=== PATIENT | female | born 2000 | race Caucasian/White ===

== ENCOUNTER 2021-08-15 22:57 | Emergency (ER) | payer OTHER ==
[2021-08-15 23:37] LABS: BILIRUBIN,URINE NEGATIVE (NEGATIVE); GLUCOSE, URINE (UA) NEGATIVE (NEGATIVE); KETONES,URINE (UA) NEGATIVE (NEGATIVE); LEUKOCYTE ESTERASE, URINE NEGATIVE (NEGATIVE); NITRITE,URINE NEGATIVE (NEGATIVE); OCCULT BLOOD,URINE NEGATIVE (NEGATIVE); PROTEIN,URINE NEGATIVE (NEGATIVE); UROBILINOGEN,URINE 0.2 (NORMAL) E.U./dL (NORMAL)
[2021-08-15 23:39] LABS: CLARITY,URINE CLEAR (CLEAR)
[2021-08-15 23:41] LABS: HCG UR QUAL NEGATIVE
[2021-08-15] MEDS ORDERED: predniSONE 20 MG TABLET PO STA (23:58)
--- NOTE | 2021-08-16 00:06 | ED Physician Documentation ---
History of Present Illness - Stated complaint Stated Complaint: FLANK PX - Chief complaint Chief Complaint: Abd Pain - History obtained from History obtained from: Patient - Additonal information Additional information: Patient is a 21-year-old female with no significant past medical history presenting for evaluation of bilateral flank pain and rash. She reports the flank pain started yesterday and feels like a dull ache. She is unsure of anything that makes it better but it does seem to be constant.She does report doing a lot of activity with bending and lifting. She denies dysuria (contrary to triage note). She denies concern for STD, denies vaginal discharge or concern for .She also reports noticing a rash starting earlier today and feeling itchy to the back of her neck And upper back. She does have a history of eczema but reports this feels different. She did try her steroid cream that she uses for eczema without any improvement. She also tried Benadryl for the itching without improvement. She is unaware of any new exposures. She denies any new medications.She denies respiratory symptoms. She denies abdominal pain, nausea, vomiting, chest pain. Review of Systems Constitutional: denies: Fever Nose: denies: Congestion Cardiac: denies: Chest pain / pressure Respiratory: denies: Dyspnea, Cough GI: denies: Abdominal Pain, Nausea, Vomiting : denies: Dysuria, Discharge Skin: reports: Rash Musculoskeletal: reports: Back pain (Bilateral flank pain) Neurologic: denies: Headache PD PAST MEDICAL HISTORY - Past Medical History Past Medical History: Yes GI: GERD Derm: Eczema Other Past Medical History: chronic UTI's - Past Surgical History Past Surgical History: No - Present Medications Home Medications: Ambulatory Orders Medication Instructions Recorded Confirmed Lamotrigine [Lamictal (Blue)] 25 mg PO DAILY 08/15/21 08/15/21 predniSONE [Deltasone] 40 mg PO DAILY 4 Days #8 tablet 08/16/21 - Allergies Allergies/Adverse Reactions: Allergies Allergy/AdvReac Type Severity Reaction Status Date / Time latex Allergy Rash Verified 08/15/21 23:05 peanut Allergy Anaphylaxis Verified 08/15/21 23:05 Penicillins Allergy Cramps Verified 08/15/21 23:05 tree nut Allergy Anaphylaxis Verified 08/15/21 23:05 - Social History Does the pt smoke?: No Smoking Status: Never smoker PD ED PE NORMAL - General General: Alert and oriented X 3, No acute distress, Well developed/nourished - HEENT HEENT: Atraumatic, Moist mucous membranes - Neck Neck: Supple, no meningeal sign, No bony TTP - Cardiac Cardiac: RRR, No murmur, Strong equal pulses - Respiratory Respiratory: No respiratory distress, Clear bilaterally - Abdomen Abdomen: Normal bowel sounds, Soft, Non tender - Back Back: No spinal TTP, Other (Bilateral flank tenderness to palpation with no erythema or swelling noted) - Derm Derm: Other (Maculopapular rash to upper back and neck) - Extremities Extremities: No edema - Neuro Neuro: Normal speech - Psych Psych: Normal mood Results - Vitals Vitals: Vital Signs - 24 hr 08/15/21 08/15/21 08/16/21 23:01 23:47 00:10 Temperature 36.2 C L 36.5 C Heart Rate 73 79 80 Respiratory 18 18 16 Rate Blood Pressure 128/89 H 110/72 112/70 O2 Saturation 100 98 100 Oxygen O2 Source Room air - Labs Labs: Laboratory Tests 08/15/21 23:27 Urine Color YELLOW Urine Clarity CLEAR Urine pH 7.0 Ur Specific [place] 1.025 Urine Protein NEGATIVE Urine Glucose (UA) NEGATIVE Urine Ketones NEGATIVE Urine Occult Blood NEGATIVE Urine Nitrite NEGATIVE Urine Bilirubin NEGATIVE Urine Urobilinogen 0.2 (NORMAL) Ur Leukocyte Esterase NEGATIVE Ur Microscopic Review NOT INDICATED Urine Culture Comments NOT INDICATED Urine HCG, Qual NEGATIVE PD MEDICAL DECISION MAKING - ED course Complexity details: reviewed results, d/w patient ED course: Patient presenting for evaluation of bilateral flank pain and rash that appears unrelated.Vital signs are stable. She has reproducible tenderness on exam with Benign abdominal exam. Urine analysis is negative for infection and . She denies vaginal discharge.Offered evaluation with labs and CT scan to evaluate for other causes of flank pain. However, patient is comfortable with trial of symptomatic care with anti-inflammatories and rest. Additionally she reports feeling itchy due to a rash on the upper back. She has tried steroid cream and Benadryl earlier today without improvement in her symptoms. We will start her on a short course of p.o. steroids. She has no respiratory symptoms. She is visiting from out of town so we will give her a paper prescription for the prednisone. Patient is aware of return precautions and is comfortable with plan for discharge. Departure - Departure Disposition: 01 Home, Self Care Clinical Impression: Bilateral flank pain, Dermatitis Condition: Stable Instructions: ED Dermatitis Non Specific Rash, ED Flank Pain Uncertain Cause Prescriptions: predniSONE [Deltasone] 40 mg PO DAILY 4 Days #8 tablet Comments: You have been evaluated for pain in your flank area. Your vital signs are stable. A urine test is negative for infection and a test is also negative. I did offer labs and obtaining a CT scan to evaluate for other causes of flank pain but we have both decided at this time that We will see how your symptoms do over the next few days with Tylenol or Motrin and using ice or heat to see if this helps with the pain. You were also evaluated for a rash to your back area. The exact cause of this rash is unclear. As you have already tried other medications without any improvement, I will start you on a short course of oral steroids. You will receive the first dose tonight and I will provide you with a prescription that you can take to any pharmacy to have filled. Please return to the emergency department with any worsening symptoms. Discharge Date/Time: 08/16/21 00:10
[2021-08-16 00:12] VITALS: BP 112/70
== END 2021-08-16 00:10 | disposition home or self-care (01) ==
LOC: ED 22:57
DX: R10.9 Unspecified abdominal pain (principal); L30.9 Dermatitis, unspecified
CPT/HCPCS: 81003; 81025; 99283; 99284; J7512; 81001; 87086